=== PATIENT | female | born 1935 | race Caucasian/White ===

== ENCOUNTER 2018-04-05 01:56 | Inpatient (IN) | payer MEDICARE ==
[~2018-04-05] VITALS: Ht 162.6 cm; Wt 54.5 kg
[2018-04-05 02:21] LABS: BASOPHILS # (AUTO) 0.1 X10'3 (0-0.2); BASOPHILS % (AUTO) 0.5 % (0-1); EOSINOPHILS % (AUTO) 0 % (0-6); HEMATOCRIT 25.3 % (35.0-45.0); HEMOGLOBIN 8.4 g/dl (12.0-16.0); LYMPHOCYTES # (AUTO) 1.2 X10'3 (1.1-4.8); LYMPHOCYTES % (AUTO) 11.2 % (21-51); MEAN CORPUSCULAR HEMOGLOBIN 29.4 PG (27.0-31.0); MEAN CORPUSCULAR VOLUME 88.9 FL (78-98); MEAN PLATELET VOLUME 8.3 FL (7.4-10.4); MONOCYTES # (AUTO) 0.9 X10'3 (0-0.9); NEUTROPHILS # (AUTO) 8.7 X10'3 (1.8-7.7); NEUTROPHILS % (AUTO) 80.3 % (42-75); PLATELET COUNT 208 X10'3 (140-440); RED BLOOD COUNT 2.84 X10'6 (4.20-5.60); WHITE BLOOD COUNT 10.9 X10'3 (4.5-11.0)
[2018-04-05] MEDS ORDERED: FLUT16SP2 BOTHNARES (02:23)
[2018-04-05] MEDS ORDERED: XAL0.005OS OP (02:23)
[2018-04-05] MEDS ORDERED: CHOL10002 PO (02:23)
[2018-04-05] MEDS ORDERED: DORZ10DR18 EACHEYE (02:23)
[2018-04-05] MEDS ORDERED: METO50TA7 PO (02:23)
[2018-04-05] MEDS ORDERED: FURO-150 PO (02:23)
[2018-04-05] MEDS ORDERED: POTA8TAB8 PO (02:23)
[2018-04-05] MEDS ORDERED: CALC1TAB PO (02:23)
[2018-04-05] MEDS ORDERED: CARV3.12 PO (02:23)
[2018-04-05] MEDS ORDERED: ASPI-416 PO (02:23)
[2018-04-05] MEDS ORDERED: CYAN500T53 PO (02:23)
[2018-04-05] MEDS ORDERED: RALO60TA PO (02:23)
[2018-04-05] MEDS ORDERED: LORA10TA61 PO (02:23)
[2018-04-05 02:29] LABS: ALANINE AMINOTRANSFERASE 49 U/L (12-78); ALBUMIN 2.9 G/DL (3.4-5.0); ALBUMIN/GLOBULIN RATIO 0.8 (1.1-1.5); ALKALINE PHOSPHATASE 101 IU/L (46-116); ANION GAP 7 (8-16); ASPARTATE AMINO TRANSFERASE 35 U/L (10-37); BILIRUBIN,TOTAL 0.7 MG/DL (0.1-1.0); BLOOD UREA NITROGEN 25 MG/DL (7-18); BUN/CREATININE RATIO 23.6 (6.6-38.0); CALCIUM 8.5 MG/DL (8.5-10.1); CHLORIDE 102 MMOL/L (99-107); CREATININE 1.06 MG/DL (0.40-0.90); GLUCOSE 100 MG/DL (70-104); INR 1.3 INR; PROTHROMBIN TIME 13.4 SECONDS (9.0-12.0); SODIUM 138 MMOL/L (135-145); TOTAL PROTEIN 6.6 G/DL (6.4-8.2); eGFR 50 ML/MIN
[2018-04-05 02:30] LABS: PARTIAL THROMBOPLASTIN TIME 36 SECONDS (22-32)
[2018-04-05] MEDS ORDERED: acetaminophen 325mg tablet PO PRN (04:05)
[2018-04-05] MEDS ORDERED: mag hydrox/Alum hydrox/simeth 30ml oral suspension PO PRN (04:05)
[2018-04-05] MEDS ORDERED: ondansetron/PF 4mg/2ml inj IV PRN (04:05)
[2018-04-05] MEDS ORDERED: magnesium hydroxide 30ml (MOM) UD suspension PO PRN (04:05)
[2018-04-05] MEDS ORDERED: loratadine 10mg tablet PO PRN (04:10)
[2018-04-05 04:32] LABS: LACTATE DEHYDROGENASE 313 U/L (81-234)
[2018-04-05 04:45] VITALS: BP 129/87
[2018-04-05 06:42] VITALS: BP 132/80
[2018-04-05] MEDS ORDERED: fluticasone nasal spray 16GM bottle NS PRN (08:00)
[2018-04-05] MEDS ORDERED: carVEDilol 3.125mg tablet PO SCH (08:00)
[2018-04-05] MEDS ORDERED: aspirin 81mg tablet.DR PO SCH (08:00)
[2018-04-05] MEDS ORDERED: furosemide 20MG tablet PO SCH (08:00)
[2018-04-05] MEDS ORDERED: potassium chloride 8mEq ER tablet PO SCH (08:00)
[2018-04-05] MEDS ORDERED: furosemide 20 MG/2 ML vial IV SCH (10:00)
[2018-04-05] MEDS ORDERED: pneumococcal 23-VAL P-sac vacc 25 mcg/0.5ml vial IMVAC ONE (10:45)
[2018-04-05 12:46] VITALS: BP 117/70
[2018-04-05 13:09] VITALS: BP 121/48
== END 2018-04-05 15:00 | disposition expired ==
LOC: ER 01:57 → ED HOLD 04:02 → CMPBEDREQ 04:38 → PCU 3S 04:39
PROVIDERS: ADMIT Internal Medicine; ATTEND Family Medicine
PROC: 30233N1 Transfusion of Nonautologous Red Blood Cells into Peripheral Vein, Percutaneous Approach (ICD-10-PCS; principal; 2018-04-05)
DX: I21.4 Non-ST elevation (NSTEMI) myocardial infarction (principal); I50.33 Acute on chronic diastolic (congestive) heart failure; I26.99 Other pulmonary embolism without acute cor pulmonale; I35.0 Nonrheumatic aortic (valve) stenosis; D64.9 Anemia, unspecified; I27.20 Pulmonary hypertension, unspecified; I46.9 Cardiac arrest, cause unspecified; M81.0 Age-related osteoporosis without current pathological fracture; I77.810 Thoracic aortic ectasia; I11.0 Hypertensive heart disease with heart failure; Z66 Do not resuscitate; Z88.7 Allergy status to serum and vaccine; Z79.899 Other long term (current) drug therapy; Z79.82 Long term (current) use of aspirin; Z85.3 Personal history of malignant neoplasm of breast; Z87.891 Personal history of nicotine dependence
CPT/HCPCS: 36415; 71045; 80053; 83615; 83880; 84484; 85025; 85610; 85730; 86885; 86900; 86901; 86920; 87070; 93005; 93306; 99285; G0378; J1940; P9016